=== PATIENT | female | born 1990 | race Caucasian/White ===

== ENCOUNTER 2018-04-01 19:10 | Emergency (ER) | payer OTHER | END 2018-04-01 20:24 | disposition home or self-care (01) | LOC: FTE 19:10 | DX: K64.9 Unspecified hemorrhoids (principal) | CPT/HCPCS: 99283; Z7502 ==

== ENCOUNTER 2018-04-16 00:55 | Emergency (ER) | payer OTHER ==
[2018-04-16] MEDS: PRAMOXINE 1% 15 GM RECT FOAM PR (01:59)
[2018-04-16] MEDS ORDERED: PRAMOXINE/HC 10 GM RECT FOAM PR (02:00)
== END 2018-04-16 02:08 | disposition home or self-care (01) ==
LOC: FTE 00:55
DX: K64.4 Residual hemorrhoidal skin tags (principal)
CPT/HCPCS: 99284; Z7502

== ENCOUNTER 2018-04-17 11:10 | Emergency (ER) | payer OTHER ==
[2018-04-17] MEDS: SOD CHLORIDE 0.9% 1,000 ML IV ×2 (11:37→12:51)
[2018-04-17] MEDS: ONDANSETRON 4 MG INJ IV (11:37)
[2018-04-17] MEDS: morphine 4 MG/ML VIAL IV (11:37)
[2018-04-17 11:53] LABS: ADD MAN DIFF? NO
[2018-04-17 11:56] LABS: WHITE BLOOD COUNT 12.7 10^3/ul (4.8-10.8)
[2018-04-17 11:56] LABS: BASOPHIL # 0.1 10^3/ul (0.0-0.1); BASOPHILS % 0.4 % (0.0-2.0); EOSINOPHILS # 0.5 10^3/ul (0.0-0.5); EOSINOPHILS % 3.8 % (0.0-7.0); HEMATOCRIT 37.3 % (37.0-47.0); HEMOGLOBIN 12.5 g/dl (12.0-16.0); LYMPHOCYTES # 2.8 10^3/ul (0.8-2.9); LYMPHOCYTES % 22.2 % (15.0-51.0); MEAN CORPUSCULAR HGB CONC 33.5 g/dl (32.0-37.0); MEAN CORPUSCULAR VOLUME 86.5 fl (82.0-101.0); MEAN PLATELET VOLUME 8.4 fl (7.4-10.4); MONOCYTE # 0.9 10^3/ul (0.3-0.9); MONOCYTES % 7.2 % (0.0-11.0); NEUTROPHIL # 8.3 10^3/ul (1.6-7.5); NEUTROPHILS % 65.2 % (39.0-77.0); PLATELET COUNT 668 10^3/UL (140-415); RED BLOOD COUNT 4.31 10^6/ul (4.20-5.40); RED CELL DISTRIBUTION WIDTH 13.7 % (11.5-14.5)
[2018-04-17 12:29] LABS: ALBUMIN/GLOBULIN RATIO 0.94; ANION GAP 16 (8-16); BILIRUBIN,TOTAL 0.8 mg/dl (0.2-1.3)
[2018-04-17 12:36] LABS: ALANINE AMINOTRANSFERASE 42 IU/L (13-69); ALBUMIN 3.3 g/dl (3.3-4.9); ALKALINE PHOSPHATASE 75 IU/L (42-121); ASPARTATE AMINO TRANSFERASE 24 IU/L (15-46); BILIRUBIN,INDIRECT 0.8 mg/dl (0-1.1); BLOOD UREA NITROGEN 7 mg/dl (7-20); CALCIUM 8.7 mg/dl (8.4-10.2); CARBON DIOXIDE 24 mmol/L (21-31); CHLORIDE 104 mmol/L (97-110); CREATININE 0.66 mg/dl (0.44-1.00); GLUCOSE 91 mg/dl (70-220); LIPASE 35 U/L (23-300); POTASSIUM 3.5 mmol/L (3.5-5.1); SODIUM 140 mmol/L (135-144); TOTAL PROTEIN 6.8 g/dl (6.1-8.1)
[2018-04-17 12:49] LABS: ADD UMIC YES; UR ASCORBIC ACID NEGATIVE (NEGATIVE); UR BACTERIA FEW /HPF (NONE SEEN); UR BILIRUBIN (Dip) NEGATIVE (NEGATIVE); UR BLOOD (Dip) 1+ mg/dL (NEGATIVE); UR CLARITY SLIGHTLY CLOUDY (CLEAR); UR COLOR YELLOW (YELLOW); UR GLUCOSE (Dip) NEGATIVE (NEGATIVE); UR KETONES (Dip) NEGATIVE (NEGATIVE); UR LEUKOCYTE ESTERASE (Dip) TRACE Leu/ul (NEGATIVE); UR MUCUS FEW /HPF (NONE SEEN); UR NITRITE (Dip) NEGATIVE (NEGATIVE); UR RBC 4 /HPF (0-5); UR SPECIFIC GRAVITY (Dip) 1.006 (1.003-1.030); UR SQUAMOUS EPITHELIAL CELL MODERATE /HPF (FEW); UR TOTAL PROTEIN (Dip) NEGATIVE (NEGATIVE); UR UROBILINOGEN (Dip) NEGATIVE (NEGATIVE); UR WBC 9 /HPF (0-5)
[2018-04-17] MEDS: ACETAMINOPHEN 500 MG TAB PO (14:14)
== END 2018-04-17 14:25 | disposition home or self-care (01) ==
LOC: FTE 11:10
DX: K64.4 Residual hemorrhoidal skin tags (principal); R19.7 Diarrhea, unspecified
CPT/HCPCS: 36415; 80053; 81001; 83690; 84703; 85025; 86850; 86900; 86901; 87086; 96361; 96374; 96375; 99284-25

== ENCOUNTER 2018-04-18 02:53 | Inpatient (IN) | payer OTHER ==
[2018-04-18] MEDS: ONDANSETRON 4 MG INJ IV ×3 (03:20→06:59)
[2018-04-18] MEDS: HYDROmorphONE 1 MG/ML SYG IV ×2 (03:20→06:59)
[2018-04-18] MEDS: SOD CHLORIDE 0.9% 1,000 ML IV ×3 (03:21→16:49)
[2018-04-18 03:35] LABS: ADD MAN DIFF? NO
[2018-04-18 03:39] LABS: WHITE BLOOD COUNT 16.6 10^3/ul (4.8-10.8)
[2018-04-18 03:39] LABS: BASOPHIL # 0.1 10^3/ul (0.0-0.1); BASOPHILS % 0.3 % (0.0-2.0); EOSINOPHILS # 0.6 10^3/ul (0.0-0.5); EOSINOPHILS % 3.4 % (0.0-7.0); HEMATOCRIT 34.8 % (37.0-47.0); HEMOGLOBIN 11.6 g/dl (12.0-16.0); LYMPHOCYTES # 3.6 10^3/ul (0.8-2.9); LYMPHOCYTES % 21.9 % (15.0-51.0); MEAN CORPUSCULAR HEMOGLOBIN 28.9 pg (29.0-33.0); MEAN CORPUSCULAR HGB CONC 33.3 g/dl (32.0-37.0); MEAN CORPUSCULAR VOLUME 86.6 fl (82.0-101.0); MEAN PLATELET VOLUME 8.6 fl (7.4-10.4); MONOCYTE # 1.1 10^3/ul (0.3-0.9); MONOCYTES % 6.3 % (0.0-11.0); NEUTROPHIL # 11.2 10^3/ul (1.6-7.5); NEUTROPHILS % 67.4 % (39.0-77.0); PLATELET COUNT 685 10^3/UL (140-415); RED BLOOD COUNT 4.02 10^6/ul (4.20-5.40); RED CELL DISTRIBUTION WIDTH 13.5 % (11.5-14.5)
[2018-04-18 03:59] LABS: ALANINE AMINOTRANSFERASE 38 IU/L (13-69); ALBUMIN 2.9 g/dl (3.3-4.9); ALBUMIN/GLOBULIN RATIO 0.76; ALKALINE PHOSPHATASE 79 IU/L (42-121); ANION GAP 14 (8-16); ASPARTATE AMINO TRANSFERASE 22 IU/L (15-46); BILIRUBIN,INDIRECT 0.6 mg/dl (0-1.1); BILIRUBIN,TOTAL 0.6 mg/dl (0.2-1.3); BLOOD UREA NITROGEN 4 mg/dl (7-20); CALCIUM 8.5 mg/dl (8.4-10.2); CARBON DIOXIDE 21 mmol/L (21-31); CHLORIDE 106 mmol/L (97-110); GLUCOSE 93 mg/dl (70-220); LIPASE 45 U/L (23-300); POTASSIUM 3.6 mmol/L (3.5-5.1); SODIUM 137 mmol/L (135-144); TOTAL PROTEIN 6.7 g/dl (6.1-8.1)
[2018-04-18] MEDS: HYDROmorphONE 0.5 MG/0.5 ML SYG IV (05:12)
[2018-04-18 05:23] LABS: ADD UMIC YES; UR ASCORBIC ACID NEGATIVE (NEGATIVE); UR BACTERIA FEW /HPF (NONE SEEN); UR BILIRUBIN (Dip) NEGATIVE (NEGATIVE); UR BLOOD (Dip) 1+ mg/dL (NEGATIVE); UR CLARITY CLEAR (CLEAR); UR COLOR YELLOW (YELLOW); UR GLUCOSE (Dip) NEGATIVE (NEGATIVE); UR KETONES (Dip) NEGATIVE (NEGATIVE); UR LEUKOCYTE ESTERASE (Dip) TRACE Leu/ul (NEGATIVE); UR MUCUS FEW /HPF (NONE SEEN); UR NITRITE (Dip) NEGATIVE (NEGATIVE); UR RBC 3 /HPF (0-5); UR SPECIFIC GRAVITY (Dip) 1.006 (1.003-1.030); UR SQUAMOUS EPITHELIAL CELL FEW /HPF (FEW); UR TOTAL PROTEIN (Dip) NEGATIVE (NEGATIVE); UR UROBILINOGEN (Dip) NEGATIVE (NEGATIVE); UR WBC 5 /HPF (0-5)
[2018-04-18] MEDS ORDERED: DIPHENHYDRAMINE 50 MG INJ (06:52)
[2018-04-18] MEDS ORDERED: NACL 0.9% 3 ML SYG IV (09:00)
[2018-04-18] MEDS ORDERED: ONDANSETRON 4 MG INJ IV (09:00)
[2018-04-18] MEDS: morphine 2 MG INJ IV ×3 (10:22→21:16)
[2018-04-18] MEDS: CIPROFLOXACIN 400MG/D5W 200 ML IVPB ×2 (10:30→21:00)
[2018-04-18 11:56] LABS: C-REACTIVE PROTEIN 8.9 mg/dl (0.0-0.9)
[2018-04-18] MEDS: FAMOTIDINE 20 MG INJ IV ×2 (12:07→21:00)
[2018-04-18] MEDS: predniSONE 20 MG TAB PO (12:07)
[2018-04-18] MEDS: metroNIDAZOLE 500 MG/NS (PMX) 100 ML IVPB ×2 (12:18→21:07)
[2018-04-18] MEDS ORDERED: HYOSCYAMINE 0.125 MG SUBL TAB SL (13:30)
[2018-04-18] MEDS: MESALAMINE (EC) 400 MG CAP PO ×2 (14:26→17:43)
[2018-04-18] MEDS: HYDROCORTISONE 25 MG SUPP PR (15:20)
[2018-04-18] MEDS: MESALAMINE 1000 MG SUPP PR (21:16)
[2018-04-19] MEDS: SOD CHLORIDE 0.9% 1,000 ML IV ×4 (00:49→23:01)
[2018-04-19] MEDS: morphine 2 MG INJ IV ×3 (01:44→09:19)
[2018-04-19] MEDS: MESALAMINE (EC) 400 MG CAP PO ×5 (02:00→20:25)
[2018-04-19] MEDS: metroNIDAZOLE 500 MG/NS (PMX) 100 ML IVPB ×2 (02:03→13:38)
[2018-04-19 04:49] LABS: ADD MAN DIFF? NO
[2018-04-19 04:52] LABS: WHITE BLOOD COUNT 12.6 10^3/ul (4.8-10.8)
[2018-04-19 04:52] LABS: BASOPHILS % 0.2 % (0.0-2.0); EOSINOPHILS % 0.2 % (0.0-7.0); HEMATOCRIT 30.6 % (37.0-47.0); HEMOGLOBIN 9.8 g/dl (12.0-16.0); LYMPHOCYTES # 2.3 10^3/ul (0.8-2.9); LYMPHOCYTES % 18.2 % (15.0-51.0); MEAN CORPUSCULAR HEMOGLOBIN 28.6 pg (29.0-33.0); MEAN CORPUSCULAR VOLUME 89.2 fl (82.0-101.0); MEAN PLATELET VOLUME 8.4 fl (7.4-10.4); MONOCYTE # 1.3 10^3/ul (0.3-0.9); MONOCYTES % 10.2 % (0.0-11.0); NEUTROPHIL # 8.9 10^3/ul (1.6-7.5); NEUTROPHILS % 70.6 % (39.0-77.0); PLATELET COUNT 532 10^3/UL (140-415); RED BLOOD COUNT 3.43 10^6/ul (4.20-5.40); RED CELL DISTRIBUTION WIDTH 13.8 % (11.5-14.5)
[2018-04-19 05:16] LABS: ALANINE AMINOTRANSFERASE 25 IU/L (13-69); ALBUMIN 2.2 g/dl (3.3-4.9); ALBUMIN/GLOBULIN RATIO 0.73; ALKALINE PHOSPHATASE 57 IU/L (42-121); ANION GAP 8 (8-16); ASPARTATE AMINO TRANSFERASE 9 IU/L (15-46); BILIRUBIN,INDIRECT 0.1 mg/dl (0-1.1); BILIRUBIN,TOTAL 0.1 mg/dl (0.2-1.3); BLOOD UREA NITROGEN 5 mg/dl (7-20); CALCIUM 7.9 mg/dl (8.4-10.2); CARBON DIOXIDE 27 mmol/L (21-31); CHLORIDE 108 mmol/L (97-110); CREATININE 0.52 mg/dl (0.44-1.00); GLUCOSE 137 mg/dl (70-220); POTASSIUM 3.7 mmol/L (3.5-5.1); SODIUM 139 mmol/L (135-144); TOTAL PROTEIN 5.2 g/dl (6.1-8.1)
[2018-04-19 05:18] LABS: AMYLASE < 30 U/L (11-123); LIPASE < 10 U/L (23-300)
[2018-04-19 05:19] LABS: HEMOGLOBIN A1C 5.6 % (0-5.9); PHOSPHORUS 2.7 mg/dl (2.5-4.9)
[2018-04-19 05:19] LABS: CHOL/HDL RATIO 1.7 RATIO; CHOLESTEROL 69 mg/dl (100-200); HDL CHOLESTEROL 40 mg/dl (33-83); LDL CHOLESTEROL,CALCULATED 22 mg/dl; MAGNESIUM 2.3 mg/dl (1.7-2.5); TRIGLYCERIDES 37 mg/dl (0-149)
[2018-04-19 05:31] LABS: INR 1.07; PT RATIO 1.1
[2018-04-19 05:31] LABS: C-REACTIVE PROTEIN 12.5 mg/dl (0.0-0.9)
[2018-04-19 05:32] LABS: PARTIAL THROMBOPLASTIN TIME 33.4 Sec (25.0-35.0)
[2018-04-19 06:13] LABS: ERYTHROCYTE SEDIMENTATION RATE 15 mm/Hr (0-20)
[2018-04-19] MEDS: FAMOTIDINE 20 MG INJ IV ×2 (09:00→20:23)
[2018-04-19] MEDS: CIPROFLOXACIN 400MG/D5W 200 ML IVPB (09:00)
[2018-04-19] MEDS: predniSONE 20 MG TAB PO (09:22)
[2018-04-19] MEDS: HYDROmorphONE 1 MG/ML SYG IV ×3 (11:59→20:23)
[2018-04-19 14:10] LABS: HEMATOCRIT 32.5 % (37.0-47.0); HEMOGLOBIN 10.6 g/dl (12.0-16.0)
[2018-04-19] MEDS: MESALAMINE 1000 MG SUPP PR (20:25)
[2018-04-20] MEDS: HYDROmorphONE 1 MG/ML SYG IV ×6 (00:38→23:40)
[2018-04-20] MEDS: HYDROCODONE/APAP (5/325) TAB PO (02:50)
[2018-04-20 06:02] LABS: WHITE BLOOD COUNT 14.2 10^3/ul (4.8-10.8)
[2018-04-20 06:02] LABS: ABNORMAL IP MESSAGE 1; HEMATOCRIT 29.3 % (37.0-47.0); HEMOGLOBIN 9.3 g/dl (12.0-16.0); MEAN CORPUSCULAR HEMOGLOBIN 28.7 pg (29.0-33.0); MEAN CORPUSCULAR HGB CONC 31.7 g/dl (32.0-37.0); MEAN CORPUSCULAR VOLUME 90.4 fl (82.0-101.0); MEAN PLATELET VOLUME 8.8 fl (7.4-10.4); PLATELET COUNT 538 10^3/UL (140-415); RED BLOOD COUNT 3.24 10^6/ul (4.20-5.40); RED CELL DISTRIBUTION WIDTH 13.9 % (11.5-14.5)
[2018-04-20 06:04] LABS: POSITIVE DIFF @See below
[2018-04-20 06:05] LABS: ADD MAN DIFF? YES
[2018-04-20 06:42] LABS: MAGNESIUM 2.2 mg/dl (1.7-2.5)
[2018-04-20 06:42] LABS: PHOSPHORUS 2.6 mg/dl (2.5-4.9)
[2018-04-20 06:45] LABS: ALANINE AMINOTRANSFERASE 23 IU/L (13-69); ALBUMIN 2.2 g/dl (3.3-4.9); ALBUMIN/GLOBULIN RATIO 0.78; ALKALINE PHOSPHATASE 50 IU/L (42-121); ANION GAP 8 (8-16); ASPARTATE AMINO TRANSFERASE < 8 IU/L (15-46); BILIRUBIN,INDIRECT 0.2 mg/dl (0-1.1); BILIRUBIN,TOTAL 0.2 mg/dl (0.2-1.3); BLOOD UREA NITROGEN 6 mg/dl (7-20); CALCIUM 7.7 mg/dl (8.4-10.2); CARBON DIOXIDE 25 mmol/L (21-31); CHLORIDE 110 mmol/L (97-110); CREATININE 0.53 mg/dl (0.44-1.00); GLUCOSE 123 mg/dl (70-220); POTASSIUM 3.7 mmol/L (3.5-5.1); SODIUM 139 mmol/L (135-144)
[2018-04-20] MEDS ORDERED: CEFAZOLIN 1 GM INJ (07:00)
[2018-04-20 07:40] LABS: ANISOCYTOSIS 1+ (0-0); BAND NEUTROPHILS #M 2.8 10^3/ul (0.0-0.6); BAND NEUTROPHILS % (M) 20 % (0-4); LYMPHOCYTES #M 3.6 10^3/ul (0.8-2.9); LYMPHOCYTES % (M) 26 % (15-51); MONOCYTE #M 1.1 10^3/ul (0.3-0.9); MONOCYTES % (M) 8 % (0-11); PLATELET ESTIMATE INCREASED; POIKILOCYTOSIS 1+ (0-0); SEG NEUT #M 6.9 10^3/ul (1.6-7.5); SEGMENTED NEUTROPHILS (M) % 46 % (39-77); SMUDGE%M 107 % (0-0)
[2018-04-20] MEDS: MESALAMINE (EC) 400 MG CAP PO ×4 (08:27→22:07)
[2018-04-20] MEDS: SOD CHLORIDE 0.9% 1,000 ML IV ×3 (08:27→22:07)
[2018-04-20] MEDS: FAMOTIDINE 20 MG INJ IV ×2 (08:28→22:06)
[2018-04-20] MEDS: predniSONE 20 MG TAB PO (08:28)
[2018-04-20] MEDS ORDERED: HYDROmorphONE 1 MG/5 ML IV SYRINGE IV ×4 (18:00→19:00)
[2018-04-20] MEDS: HYDROmorphONE 0.5 MG/0.5 ML SYG IV (18:17)
[2018-04-20] MEDS ORDERED: MIDAZOLAM 1 MG/ML 2 ML INJ ×2 (18:57→19:19)
[2018-04-20] MEDS ORDERED: LIDOCAINE 2% (SDV) 5 ML INJ (18:58)
[2018-04-20] MEDS ORDERED: PROPOFOL 20 ML (18:58)
[2018-04-20] MEDS ORDERED: FENTAnyl 50 MCG/ML VIAL (18:59)
[2018-04-20] MEDS ORDERED: FENTAnyl 50 MCG/ML VIAL IV ×3 (19:00)
[2018-04-20] MEDS ORDERED: ONDANSETRON 4 MG INJ IV (19:00)
[2018-04-20] MEDS ORDERED: MEPERIDINE 25 MG INJ IV (19:00)
[2018-04-20] MEDS ORDERED: DIPHENHYDRAMINE 50 MG INJ IV (19:00)
[2018-04-20] MEDS ORDERED: PROCHLORPERAZINE 10 MG INJ IV (19:00)
[2018-04-20] MEDS ORDERED: ONDANSETRON 4 MG INJ (19:03)
[2018-04-20] MEDS ORDERED: DEXAMETHASONE 4 MG/ML 1 ML INJ (19:03)
[2018-04-20] MEDS ORDERED: HYDROmorphONE 2 MG/ML SYG (19:20)
[2018-04-20] MEDS: BUPIVACAINE 0.25%/EPI (SDV) 30 ML INJ (19:35)
[2018-04-20] MEDS: MESALAMINE 1000 MG SUPP PR (21:00)
[2018-04-20] MEDS: MUPIROCIN 2% 22 GM OINT TOP (22:07)
[2018-04-21] MEDS: HYDROCODONE/APAP (5/325) TAB PO ×2 (02:10→11:21)
[2018-04-21] MEDS: HYDROmorphONE 1 MG/ML SYG IV ×5 (03:33→20:12)
[2018-04-21 05:03] LABS: ABNORMAL IP MESSAGE 1; HEMOGLOBIN 9.8 g/dl (12.0-16.0); MEAN CORPUSCULAR HEMOGLOBIN 28.5 pg (29.0-33.0); MEAN CORPUSCULAR HGB CONC 31.6 g/dl (32.0-37.0); MEAN CORPUSCULAR VOLUME 90.1 fl (82.0-101.0); MEAN PLATELET VOLUME 8.6 fl (7.4-10.4); PLATELET COUNT 526 10^3/UL (140-415); RED BLOOD COUNT 3.44 10^6/ul (4.20-5.40); RED CELL DISTRIBUTION WIDTH 14.2 % (11.5-14.5)
[2018-04-21 05:03] LABS: WHITE BLOOD COUNT 14.8 10^3/ul (4.8-10.8)
[2018-04-21 05:19] LABS: ADD MAN DIFF? YES; POSITIVE DIFF @See below
[2018-04-21 05:23] LABS: ANION GAP 11 (8-16); BLOOD UREA NITROGEN 6 mg/dl (7-20); CALCIUM 8.2 mg/dl (8.4-10.2); CARBON DIOXIDE 30 mmol/L (21-31); CHLORIDE 103 mmol/L (97-110); CREATININE 0.53 mg/dl (0.44-1.00); GLUCOSE 104 mg/dl (70-220); POTASSIUM 4.7 mmol/L (3.5-5.1); SODIUM 139 mmol/L (135-144)
[2018-04-21 05:27] LABS: PHOSPHORUS 3.7 mg/dl (2.5-4.9)
[2018-04-21 07:40] LABS: BAND NEUTROPHILS #M 3.4 10^3/ul (0.0-0.6); BAND NEUTROPHILS % (M) 23 % (0-4); LYMPHOCYTES % (M) 14 % (15-51); MONOCYTE #M 1.6 10^3/ul (0.3-0.9); MONOCYTES % (M) 11 % (0-11); PLATELET ESTIMATE NORMAL; SEG NEUT #M 8.2 10^3/ul (1.6-7.5); SEGMENTED NEUTROPHILS (M) % 52 % (39-77); SMUDGE%M 76 % (0-0)
[2018-04-21] MEDS: SOD CHLORIDE 0.9% 1,000 ML IV ×2 (08:49→12:11)
[2018-04-21] MEDS: MESALAMINE (EC) 400 MG CAP PO ×4 (09:16→20:17)
[2018-04-21] MEDS: MUPIROCIN 2% 22 GM OINT TOP ×2 (09:16→20:18)
[2018-04-21] MEDS: predniSONE 20 MG TAB PO (09:16)
[2018-04-21] MEDS: FAMOTIDINE 20 MG INJ IV ×2 (09:17→20:14)
[2018-04-21] MEDS ORDERED: LOPERAMIDE HCL 1 MG/5 ML LIQUID (10 ML UD CUP) PO (16:00)
[2018-04-21] MEDS: PSYLLIUM 28% PACKET PO (17:17)
[2018-04-21] MEDS: LOPERAMIDE 2 MG CAP PO (17:17)
[2018-04-21] MEDS: MESALAMINE 1000 MG SUPP PR (19:57)
[2018-04-22] MEDS: HYDROmorphONE 1 MG/ML SYG IV ×7 (00:11→20:32)
[2018-04-22] MEDS: SOD CHLORIDE 0.9% 1,000 ML IV ×3 (00:49→16:27)
[2018-04-22] MEDS: HYDROCODONE/APAP (5/325) TAB PO ×2 (01:51→20:00)
[2018-04-22 05:36] LABS: WHITE BLOOD COUNT 11.4 10^3/ul (4.8-10.8)
[2018-04-22 05:36] LABS: ABNORMAL IP MESSAGE 1; HEMOGLOBIN 9.4 g/dl (12.0-16.0); MEAN CORPUSCULAR HEMOGLOBIN 28.7 pg (29.0-33.0); MEAN CORPUSCULAR HGB CONC 32.4 g/dl (32.0-37.0); MEAN CORPUSCULAR VOLUME 88.7 fl (82.0-101.0); MEAN PLATELET VOLUME 8.4 fl (7.4-10.4); PLATELET COUNT 529 10^3/UL (140-415); RED BLOOD COUNT 3.27 10^6/ul (4.20-5.40); RED CELL DISTRIBUTION WIDTH 13.9 % (11.5-14.5)
[2018-04-22 05:42] LABS: ADD MAN DIFF? YES; POSITIVE DIFF @See below
[2018-04-22 06:10] LABS: PHOSPHORUS 3.3 mg/dl (2.5-4.9)
[2018-04-22 06:10] LABS: MAGNESIUM 2.1 mg/dl (1.7-2.5)
[2018-04-22 06:12] LABS: ALANINE AMINOTRANSFERASE 24 IU/L (13-69); ALBUMIN 2.3 g/dl (3.3-4.9); ALBUMIN/GLOBULIN RATIO 0.71; ALKALINE PHOSPHATASE 58 IU/L (42-121); ANION GAP 7 (8-16); ASPARTATE AMINO TRANSFERASE 15 IU/L (15-46); BILIRUBIN,INDIRECT 0.2 mg/dl (0-1.1); BILIRUBIN,TOTAL 0.2 mg/dl (0.2-1.3); BLOOD UREA NITROGEN 8 mg/dl (7-20); CALCIUM 8.4 mg/dl (8.4-10.2); CARBON DIOXIDE 32 mmol/L (21-31); CHLORIDE 105 mmol/L (97-110); CREATININE 0.48 mg/dl (0.44-1.00); GLUCOSE 86 mg/dl (70-220); POTASSIUM 3.6 mmol/L (3.5-5.1); SODIUM 140 mmol/L (135-144); TOTAL PROTEIN 5.5 g/dl (6.1-8.1)
[2018-04-22] MEDS: PSYLLIUM 28% PACKET PO ×3 (07:50→16:28)
[2018-04-22] MEDS: MESALAMINE (EC) 400 MG CAP PO ×4 (08:18→20:00)
[2018-04-22] MEDS: FAMOTIDINE 20 MG INJ IV ×2 (08:18→21:00)
[2018-04-22] MEDS: predniSONE 20 MG TAB PO (08:18)
[2018-04-22] MEDS: MUPIROCIN 2% 22 GM OINT TOP ×2 (08:21→20:01)
[2018-04-22 09:11] LABS: BAND NEUTROPHILS #M 3.1 10^3/ul (0.0-0.6); BAND NEUTROPHILS % (M) 28 % (0-4); EOSINOPHILS % (M) 1 % (0-7); LYMPHOCYTES #M 3.4 10^3/ul (0.8-2.9); LYMPHOCYTES % (M) 30 % (15-51); MONOCYTE #M 1.1 10^3/ul (0.3-0.9); MONOCYTES % (M) 10 % (0-11); PLATELET ESTIMATE NORMAL; POLYCHROMASIA 1+ (0-0); SEG NEUT #M 3.9 10^3/ul (1.6-7.5); SEGMENTED NEUTROPHILS (M) % 31 % (39-77); SMUDGE%M 22 % (0-0)
[2018-04-22] MEDS: LIDOCAINE 5% 35 GM OINT TOP ×2 (12:41→23:37)
[2018-04-22] MEDS: MESALAMINE 1000 MG SUPP PR (21:00)
[2018-04-22] MEDS: LOPERAMIDE 2 MG CAP PO (23:36)
[2018-04-23] MEDS: HYDROmorphONE 1 MG/ML SYG IV ×8 (00:06→23:21)
[2018-04-23] MEDS: DICYCLOMINE 10 MG CAP PO ×2 (00:21→06:50)
[2018-04-23] MEDS: SOD CHLORIDE 0.9% 1,000 ML IV (00:49)
[2018-04-23] MEDS: LORAZEPAM 2 MG INJ IV (01:53)
[2018-04-23 05:19] LABS: WHITE BLOOD COUNT 12.5 10^3/ul (4.8-10.8)
[2018-04-23 05:19] LABS: ABNORMAL IP MESSAGE 1; HEMATOCRIT 28.5 % (37.0-47.0); HEMOGLOBIN 9.1 g/dl (12.0-16.0); MEAN CORPUSCULAR HEMOGLOBIN 28.3 pg (29.0-33.0); MEAN CORPUSCULAR HGB CONC 31.9 g/dl (32.0-37.0); MEAN CORPUSCULAR VOLUME 88.8 fl (82.0-101.0); MEAN PLATELET VOLUME 8.5 fl (7.4-10.4); PLATELET COUNT 533 10^3/UL (140-415); RED BLOOD COUNT 3.21 10^6/ul (4.20-5.40); RED CELL DISTRIBUTION WIDTH 13.8 % (11.5-14.5)
[2018-04-23 05:35] LABS: POSITIVE DIFF @See below
[2018-04-23 05:36] LABS: ADD MAN DIFF? YES
[2018-04-23 05:43] LABS: ANION GAP 8 (8-16); BLOOD UREA NITROGEN 9 mg/dl (7-20); CALCIUM 8.2 mg/dl (8.4-10.2); CARBON DIOXIDE 30 mmol/L (21-31); CHLORIDE 103 mmol/L (97-110); GLUCOSE 80 mg/dl (70-220); POTASSIUM 3.3 mmol/L (3.5-5.1); SODIUM 138 mmol/L (135-144)
[2018-04-23 05:46] LABS: PHOSPHORUS 3.4 mg/dl (2.5-4.9)
[2018-04-23] MEDS: HYDROCODONE/APAP (5/325) TAB PO ×3 (06:50→22:16)
[2018-04-23] MEDS: PSYLLIUM 28% PACKET PO ×3 (07:50→17:55)
[2018-04-23 08:07] LABS: BAND NEUTROPHILS #M 0.2 10^3/ul (0.0-0.6); BAND NEUTROPHILS % (M) 2 % (0-4); LYMPHOCYTES #M 3.6 10^3/ul (0.8-2.9); LYMPHOCYTES % (M) 29 % (15-51); MONOCYTE #M 1.1 10^3/ul (0.3-0.9); MONOCYTES % (M) 9 % (0-11); PLATELET ESTIMATE INCREASED; POLYCHROMASIA 2+ (0-0); SEG NEUT #M 7.5 10^3/ul (1.6-7.5); SEGMENTED NEUTROPHILS (M) % 60 % (39-77); SMUDGE%M 21 % (0-0)
[2018-04-23] MEDS: FAMOTIDINE 20 MG INJ IV ×2 (09:21→20:22)
[2018-04-23] MEDS: POTASSIUM CHLORIDE (SR) 20 MEQ TAB PO (09:21)
[2018-04-23] MEDS: LOPERAMIDE 2 MG CAP PO (09:21)
[2018-04-23] MEDS: MESALAMINE (EC) 400 MG CAP PO ×4 (09:21→20:22)
[2018-04-23] MEDS: MUPIROCIN 2% 22 GM OINT TOP ×2 (09:22→21:15)
[2018-04-23] MEDS: ALBUTEROL 0.083% (NEB) 2.5 MG/3 ML AMP HHN (10:25)
[2018-04-23] MEDS: IPRATROPIUM (NEB) 0.5 MG/2.5 ML AMP HHN (10:25)
[2018-04-23] MEDS: predniSONE 20 MG TAB PO (10:29)
[2018-04-23] MEDS: MESALAMINE 1000 MG SUPP PR ×2 (20:22→21:00)
[2018-04-24] MEDS: HYDROmorphONE 1 MG/ML SYG IV ×8 (02:11→23:55)
[2018-04-24 05:29] LABS: WHITE BLOOD COUNT 10.6 10^3/ul (4.8-10.8)
[2018-04-24 05:29] LABS: HEMATOCRIT 29.4 % (37.0-47.0); HEMOGLOBIN 9.5 g/dl (12.0-16.0); MEAN CORPUSCULAR HEMOGLOBIN 29.1 pg (29.0-33.0); MEAN CORPUSCULAR HGB CONC 32.3 g/dl (32.0-37.0); MEAN CORPUSCULAR VOLUME 90.2 fl (82.0-101.0); MEAN PLATELET VOLUME 8.5 fl (7.4-10.4); PLATELET COUNT 542 10^3/UL (140-415); RED BLOOD COUNT 3.26 10^6/ul (4.20-5.40); RED CELL DISTRIBUTION WIDTH 13.9 % (11.5-14.5)
[2018-04-24 05:42] LABS: POSITIVE DIFF @See below
[2018-04-24 05:43] LABS: ADD MAN DIFF? YES
[2018-04-24 06:00] LABS: MAGNESIUM 2.1 mg/dl (1.7-2.5)
[2018-04-24 06:00] LABS: PHOSPHORUS 4.2 mg/dl (2.5-4.9)
[2018-04-24 06:25] LABS: ANION GAP 10 (8-16); BLOOD UREA NITROGEN 9 mg/dl (7-20); CALCIUM 8.6 mg/dl (8.4-10.2); CARBON DIOXIDE 32 mmol/L (21-31); CHLORIDE 100 mmol/L (97-110); CREATININE 0.49 mg/dl (0.44-1.00); GLUCOSE 137 mg/dl (70-220); POTASSIUM 3.7 mmol/L (3.5-5.1); SODIUM 138 mmol/L (135-144)
[2018-04-24] MEDS: HYDROCODONE/APAP (5/325) TAB PO ×2 (07:29→22:24)
[2018-04-24] MEDS: predniSONE 20 MG TAB PO (08:12)
[2018-04-24] MEDS: MESALAMINE (EC) 400 MG CAP PO ×4 (08:12→20:45)
[2018-04-24] MEDS: PSYLLIUM 28% PACKET PO ×3 (08:12→18:18)
[2018-04-24] MEDS: FAMOTIDINE 20 MG INJ IV ×2 (08:13→20:46)
[2018-04-24] MEDS: MUPIROCIN 2% 22 GM OINT TOP ×2 (08:13→20:46)
[2018-04-24 10:00] LABS: BAND NEUTROPHILS #M 0.6 10^3/ul (0.0-0.6); BAND NEUTROPHILS % (M) 6 % (0-4); LYMPHOCYTES #M 2.2 10^3/ul (0.8-2.9); LYMPHOCYTES % (M) 21 % (15-51); MONOCYTE #M 0.9 10^3/ul (0.3-0.9); MONOCYTES % (M) 9 % (0-11); PLATELET ESTIMATE INCREASED; POIKILOCYTOSIS 1+ (0-0); POLYCHROMASIA 1+ (0-0); SEG NEUT #M 6.8 10^3/ul (1.6-7.5); SEGMENTED NEUTROPHILS (M) % 64 % (39-77); SMUDGE%M 21 % (0-0)
[2018-04-24] MEDS: LIDOCAINE 5% 35 GM OINT TOP (10:29)
[2018-04-24] MEDS: LOPERAMIDE 2 MG CAP PO (10:37)
[2018-04-24] MEDS: DICYCLOMINE 10 MG CAP PO (10:37)
[2018-04-24] MEDS: MESALAMINE 1000 MG SUPP PR (21:00)
[2018-04-25] MEDS: HYDROmorphONE 0.5 MG/0.5 ML SYG IV ×3 (01:26→14:53)
[2018-04-25] MEDS: HYDROmorphONE 1 MG/ML SYG IV ×5 (02:37→22:27)
[2018-04-25 05:18] LABS: HEMATOCRIT 29.5 % (37.0-47.0); HEMOGLOBIN 9.5 g/dl (12.0-16.0); MEAN CORPUSCULAR HEMOGLOBIN 28.3 pg (29.0-33.0); MEAN CORPUSCULAR HGB CONC 32.2 g/dl (32.0-37.0); MEAN CORPUSCULAR VOLUME 87.8 fl (82.0-101.0); MEAN PLATELET VOLUME 8.4 fl (7.4-10.4); PLATELET COUNT 539 10^3/UL (140-415); RED BLOOD COUNT 3.36 10^6/ul (4.20-5.40); RED CELL DISTRIBUTION WIDTH 13.9 % (11.5-14.5)
[2018-04-25 05:18] LABS: WHITE BLOOD COUNT 11.9 10^3/ul (4.8-10.8)
[2018-04-25 05:36] LABS: ADD MAN DIFF? YES; POSITIVE DIFF @See below
[2018-04-25 05:40] LABS: ANION GAP 10 (8-16); BLOOD UREA NITROGEN 9 mg/dl (7-20); CALCIUM 8.6 mg/dl (8.4-10.2); CARBON DIOXIDE 28 mmol/L (21-31); CHLORIDE 104 mmol/L (97-110); CREATININE 0.59 mg/dl (0.44-1.00); GLUCOSE 120 mg/dl (70-220); POTASSIUM 3.6 mmol/L (3.5-5.1); SODIUM 138 mmol/L (135-144)
[2018-04-25 05:41] LABS: PHOSPHORUS 4.8 mg/dl (2.5-4.9)
[2018-04-25 05:41] LABS: MAGNESIUM 1.9 mg/dl (1.7-2.5)
[2018-04-25] MEDS: PSYLLIUM 28% PACKET PO ×2 (07:50→11:40)
[2018-04-25] MEDS: MESALAMINE (EC) 400 MG CAP PO ×5 (08:35→22:28)
[2018-04-25] MEDS: predniSONE 20 MG TAB PO (08:36)
[2018-04-25] MEDS: HYDROCODONE/APAP (5/325) TAB PO (08:37)
[2018-04-25] MEDS: FAMOTIDINE 20 MG INJ IV ×3 (08:37→22:29)
[2018-04-25] MEDS: MUPIROCIN 2% 22 GM OINT TOP ×3 (08:39→22:29)
[2018-04-25 08:58] LABS: BAND NEUTROPHILS #M 2.1 10^3/ul (0.0-0.6); BAND NEUTROPHILS % (M) 18 % (0-4); EOSINOPHILS % (M) 3 % (0-7); GIANT THROMBO% (M) 1 % (0-0); LYMPHOCYTES #M 7.2 10^3/ul (0.8-2.9); LYMPHOCYTES % (M) 61 % (15-51); MONOCYTE #M 1.1 10^3/ul (0.3-0.9); MONOCYTES % (M) 10 % (0-11); PLATELET ESTIMATE NORMAL; POIKILOCYTOSIS 1+ (0-0); POLYCHROMASIA 2+ (0-0); SEG NEUT #M 1.2 10^3/ul (1.6-7.5); SEGMENTED NEUTROPHILS (M) % 8 % (39-77); SMUDGE%M 18 % (0-0)
[2018-04-25] MEDS: METHYLPREDNISOLONE 40 MG INJ IV (12:02)
[2018-04-25] MEDS: HYOSCYAMINE 0.125 MG SUBL TAB SL ×4 (14:50→22:28)
[2018-04-25] MEDS: ACETAMINOPHEN 325 MG TAB PO (16:49)
[2018-04-26] MEDS: HYDROmorphONE 1 MG/ML SYG IV ×7 (01:33→22:48)
[2018-04-26] MEDS: HYDROmorphONE 0.5 MG/0.5 ML SYG IV ×2 (03:32→21:15)
[2018-04-26] MEDS: HYOSCYAMINE 0.125 MG SUBL TAB SL ×5 (05:37→20:56)
[2018-04-26 05:47] LABS: HEMATOCRIT 33.3 % (37.0-47.0); HEMOGLOBIN 10.5 g/dl (12.0-16.0); MEAN CORPUSCULAR HEMOGLOBIN 27.6 pg (29.0-33.0); MEAN CORPUSCULAR HGB CONC 31.5 g/dl (32.0-37.0); MEAN CORPUSCULAR VOLUME 87.6 fl (82.0-101.0); MEAN PLATELET VOLUME 8.6 fl (7.4-10.4); PLATELET COUNT 604 10^3/UL (140-415); RED CELL DISTRIBUTION WIDTH 13.9 % (11.5-14.5)
[2018-04-26 05:53] LABS: ADD MAN DIFF? YES; POSITIVE DIFF @See below
[2018-04-26 06:23] LABS: ALANINE AMINOTRANSFERASE 91 IU/L (13-69); ALBUMIN 2.9 g/dl (3.3-4.9); ALBUMIN/GLOBULIN RATIO 0.72; ALKALINE PHOSPHATASE 94 IU/L (42-121); ANION GAP 15 (8-16); ASPARTATE AMINO TRANSFERASE 41 IU/L (15-46); BILIRUBIN,INDIRECT 0.3 mg/dl (0-1.1); BILIRUBIN,TOTAL 0.3 mg/dl (0.2-1.3); BLOOD UREA NITROGEN 10 mg/dl (7-20); CARBON DIOXIDE 25 mmol/L (21-31); CHLORIDE 101 mmol/L (97-110); CREATININE 0.58 mg/dl (0.44-1.00); GLUCOSE 99 mg/dl (70-220); POTASSIUM 4.1 mmol/L (3.5-5.1); SODIUM 137 mmol/L (135-144); TOTAL PROTEIN 6.9 g/dl (6.1-8.1)
[2018-04-26 08:17] LABS: ANISOCYTOSIS 1+ (0-0); BAND NEUTROPHILS #M 1.1 10^3/ul (0.0-0.6); BAND NEUTROPHILS % (M) 10 % (0-4); HYPOCHROMASIA 2+ (0-0); LYMPHOCYTES #M 4.7 10^3/ul (0.8-2.9); LYMPHOCYTES % (M) 43 % (15-51); METAMYELOCYTES #M 0.3 10^3/ul (0.0-0.0); METAMYELOCYTES %M 3 % (0-0); MONOCYTE #M 0.4 10^3/ul (0.3-0.9); MONOCYTES % (M) 4 % (0-11); MYELOCYTES #M 0.1 10^3/ul (0.0-0.0); MYELOCYTES % (M) 1 % (0-0); PLATELET ESTIMATE INCREASED; POLYCHROMASIA 1+ (0-0); REACTIVE LYMPHOCYTES #M 0.2 10^3/ul (0.0-0.0); REACTIVE LYMPHOCYTES% (M) 2 % (0-0); SEG NEUT #M 4.2 10^3/ul (1.6-7.5); SEGMENTED NEUTROPHILS (M) % 37 % (39-77); SMUDGE%M 5 % (0-0)
[2018-04-26] MEDS: MUPIROCIN 2% 22 GM OINT TOP ×2 (08:27→21:13)
[2018-04-26] MEDS: METHYLPREDNISOLONE 40 MG INJ IV (08:28)
[2018-04-26] MEDS: FAMOTIDINE 20 MG INJ IV ×2 (08:35→20:56)
[2018-04-26 08:56] LABS: ERYTHROCYTE SEDIMENTATION RATE 35 mm/Hr (0-20)
[2018-04-26 09:22] LABS: C-REACTIVE PROTEIN 14.7 mg/dl (0.0-0.9)
[2018-04-26] MEDS: LIDOCAINE 5% 35 GM OINT TOP (11:45)
[2018-04-26] MEDS: MESALAMINE (EC) 400 MG CAP PO ×3 (13:06→20:56)
[2018-04-27] MEDS: HYOSCYAMINE 0.125 MG SUBL TAB SL ×5 (01:06→14:07)
[2018-04-27] MEDS: HYDROmorphONE 1 MG/ML SYG IV ×8 (01:56→23:20)
[2018-04-27] MEDS: FAMOTIDINE 20 MG INJ IV ×2 (07:52→20:04)
[2018-04-27] MEDS: METHYLPREDNISOLONE 40 MG INJ IV (07:52)
[2018-04-27] MEDS: MESALAMINE (EC) 400 MG CAP PO ×4 (07:53→23:20)
[2018-04-27] MEDS: MUPIROCIN 2% 22 GM OINT TOP ×2 (07:54→20:10)
[2018-04-27 13:47] LABS: ANCA SCREEN NEGATIVE (NEGATIVE)
[2018-04-27] MEDS ORDERED: HYOSCYAMINE 0.125 MG SUBL TAB SL (15:00)
[2018-04-27 16:47] LABS: MYELOPEROXIDASE ANTIBODY <1.0 AI; PROTEINASE-3 ANTIBODY <1.0 AI
[2018-04-28] MEDS: HYDROmorphONE 0.5 MG/0.5 ML SYG IV ×2 (01:57→20:53)
[2018-04-28] MEDS: HYDROmorphONE 1 MG/ML SYG IV ×7 (03:43→21:42)
[2018-04-28] MEDS: MUPIROCIN 2% 22 GM OINT TOP ×2 (08:43→20:58)
[2018-04-28] MEDS: FAMOTIDINE 20 MG INJ IV ×2 (08:44→20:54)
[2018-04-28] MEDS: MESALAMINE (EC) 400 MG CAP PO ×2 (08:44→12:39)
[2018-04-28] MEDS: predniSONE 10 MG TAB PO (08:48)
[2018-04-28 15:07] LABS: ADD MAN DIFF? NO
[2018-04-28 15:11] LABS: BASOPHILS % 0.2 % (0.0-2.0); EOSINOPHILS % 0.1 % (0.0-7.0); HEMATOCRIT 31.1 % (37.0-47.0); HEMOGLOBIN 9.9 g/dl (12.0-16.0); LYMPHOCYTES # 1.3 10^3/ul (0.8-2.9); LYMPHOCYTES % 9.2 % (15.0-51.0); MEAN CORPUSCULAR HEMOGLOBIN 28.4 pg (29.0-33.0); MEAN CORPUSCULAR HGB CONC 31.8 g/dl (32.0-37.0); MEAN CORPUSCULAR VOLUME 89.1 fl (82.0-101.0); MONOCYTE # 0.5 10^3/ul (0.3-0.9); MONOCYTES % 3.3 % (0.0-11.0); NEUTROPHIL # 11.7 10^3/ul (1.6-7.5); NEUTROPHILS % 84.9 % (39.0-77.0); PLATELET COUNT 451 10^3/UL (140-415); RED BLOOD COUNT 3.49 10^6/ul (4.20-5.40); RED CELL DISTRIBUTION WIDTH 14.1 % (11.5-14.5)
[2018-04-28 15:11] LABS: WHITE BLOOD COUNT 13.8 10^3/ul (4.8-10.8)
[2018-04-28 15:31] LABS: ALANINE AMINOTRANSFERASE 162 IU/L (13-69); ALKALINE PHOSPHATASE 71 IU/L (42-121); ANION GAP 12 (8-16); ASPARTATE AMINO TRANSFERASE 89 IU/L (15-46); BILIRUBIN,INDIRECT 0.2 mg/dl (0-1.1); BILIRUBIN,TOTAL 0.2 mg/dl (0.2-1.3); BLOOD UREA NITROGEN 11 mg/dl (7-20); CALCIUM 8.6 mg/dl (8.4-10.2); CARBON DIOXIDE 26 mmol/L (21-31); CHLORIDE 102 mmol/L (97-110); CREATININE 0.64 mg/dl (0.44-1.00); GLUCOSE 153 mg/dl (70-220); POTASSIUM 4.2 mmol/L (3.5-5.1); SODIUM 136 mmol/L (135-144); TOTAL PROTEIN 6.3 g/dl (6.1-8.1)
[2018-04-29] MEDS: HYDROmorphONE 1 MG/ML SYG IV ×8 (00:39→22:50)
[2018-04-29] MEDS: HYDROmorphONE 0.5 MG/0.5 ML SYG IV ×2 (03:01→08:48)
[2018-04-29 05:09] LABS: ADD MAN DIFF? NO
[2018-04-29 05:12] LABS: BASOPHIL # 0.1 10^3/ul (0.0-0.1); BASOPHILS % 0.4 % (0.0-2.0); EOSINOPHILS # 0.4 10^3/ul (0.0-0.5); EOSINOPHILS % 2.7 % (0.0-7.0); HEMATOCRIT 30.7 % (37.0-47.0); HEMOGLOBIN 9.7 g/dl (12.0-16.0); LYMPHOCYTES # 3.9 10^3/ul (0.8-2.9); LYMPHOCYTES % 27.5 % (15.0-51.0); MEAN CORPUSCULAR HEMOGLOBIN 28.4 pg (29.0-33.0); MEAN CORPUSCULAR HGB CONC 31.6 g/dl (32.0-37.0); MEAN CORPUSCULAR VOLUME 89.8 fl (82.0-101.0); MEAN PLATELET VOLUME 8.1 fl (7.4-10.4); MONOCYTE # 1.4 10^3/ul (0.3-0.9); MONOCYTES % 10.1 % (0.0-11.0); NEUTROPHIL # 7.8 10^3/ul (1.6-7.5); NEUTROPHILS % 55.5 % (39.0-77.0); NUCLEATED RED BLOOD CELLS% 0.1 /100WBC (0.0-0.0); PLATELET COUNT 446 10^3/UL (140-415); RED BLOOD COUNT 3.42 10^6/ul (4.20-5.40); RED CELL DISTRIBUTION WIDTH 14.2 % (11.5-14.5)
[2018-04-29] MEDS: HYDROCODONE/APAP (5/325) TAB PO ×2 (05:26→23:50)
[2018-04-29 05:42] LABS: ALANINE AMINOTRANSFERASE 178 IU/L (13-69); ALBUMIN 2.7 g/dl (3.3-4.9); ALBUMIN/GLOBULIN RATIO 0.84; ALKALINE PHOSPHATASE 79 IU/L (42-121); ANION GAP 10 (8-16); ASPARTATE AMINO TRANSFERASE 89 IU/L (15-46); BILIRUBIN,INDIRECT 0.2 mg/dl (0-1.1); BILIRUBIN,TOTAL 0.2 mg/dl (0.2-1.3); BLOOD UREA NITROGEN 13 mg/dl (7-20); CALCIUM 8.2 mg/dl (8.4-10.2); CARBON DIOXIDE 28 mmol/L (21-31); CHLORIDE 105 mmol/L (97-110); CREATININE 0.56 mg/dl (0.44-1.00); GLUCOSE 98 mg/dl (70-220); POTASSIUM 3.8 mmol/L (3.5-5.1); SODIUM 139 mmol/L (135-144); TOTAL PROTEIN 5.9 g/dl (6.1-8.1)
[2018-04-29] MEDS: predniSONE 10 MG TAB PO (08:50)
[2018-04-29] MEDS: FAMOTIDINE 20 MG INJ IV ×2 (08:50→20:17)
[2018-04-29] MEDS: MUPIROCIN 2% 22 GM OINT TOP ×2 (08:51→20:18)
[2018-04-29] MEDS: ALPRAZOLAM 0.25 MG TAB PO (18:41)
[2018-04-29] MEDS: POTASSIUM CHLORIDE 10 MEQ in SOD CHLORIDE 0.45% 1,000 ML IV (19:41)
[2018-04-29] MEDS: LOPERAMIDE 2 MG CAP PO (22:56)
[2018-04-30] MEDS: HYDROmorphONE 1 MG/ML SYG IV ×8 (01:49→22:56)
[2018-04-30] MEDS: POTASSIUM CHLORIDE 10 MEQ in SOD CHLORIDE 0.45% 1,000 ML IV ×2 (07:20→20:40)
[2018-04-30] MEDS: MUPIROCIN 2% 22 GM OINT TOP ×2 (08:49→22:00)
[2018-04-30] MEDS: predniSONE 10 MG TAB PO (08:49)
[2018-04-30] MEDS: FAMOTIDINE 20 MG INJ IV ×2 (08:49→21:59)
[2018-04-30] MEDS: LOPERAMIDE 2 MG CAP PO (10:48)
[2018-04-30] MEDS: LIDOCAINE 5% 35 GM OINT TOP (10:49)
[2018-04-30] MEDS ORDERED: LOPERAMIDE 2 MG CAP PO (12:30)
[2018-05-01] MEDS: HYDROmorphONE 1 MG/ML SYG IV ×8 (03:40→22:05)
[2018-05-01] MEDS: HYDROmorphONE 0.5 MG/0.5 ML SYG IV (03:41)
[2018-05-01 05:27] LABS: ALANINE AMINOTRANSFERASE 125 IU/L (13-69); ALBUMIN 2.8 g/dl (3.3-4.9); ALKALINE PHOSPHATASE 66 IU/L (42-121); ANION GAP 10 (8-16); ASPARTATE AMINO TRANSFERASE 34 IU/L (15-46); BILIRUBIN,INDIRECT 0.2 mg/dl (0-1.1); BILIRUBIN,TOTAL 0.2 mg/dl (0.2-1.3); BLOOD UREA NITROGEN 14 mg/dl (7-20); CALCIUM 8.4 mg/dl (8.4-10.2); CARBON DIOXIDE 28 mmol/L (21-31); CHLORIDE 104 mmol/L (97-110); CREATININE 0.49 mg/dl (0.44-1.00); GLUCOSE 84 mg/dl (70-220); SODIUM 138 mmol/L (135-144); TOTAL PROTEIN 5.9 g/dl (6.1-8.1)
[2018-05-01] MEDS: predniSONE 10 MG TAB PO (09:25)
[2018-05-01] MEDS: FAMOTIDINE 20 MG INJ IV ×2 (09:26→20:39)
[2018-05-01] MEDS: MUPIROCIN 2% 22 GM OINT TOP ×2 (09:26→20:38)
[2018-05-01] MEDS: POTASSIUM CHLORIDE 10 MEQ in SOD CHLORIDE 0.45% 1,000 ML IV ×2 (10:00→23:20)
[2018-05-01] MEDS: BISACODYL (EC) 5 MG TAB PO (11:42)
[2018-05-01] MEDS: MAGNESIUM CITRATE 300 ML BTL PO (18:21)
[2018-05-01] MEDS: LIDOCAINE 5% 35 GM OINT TOP ×2 (18:23→20:38)
[2018-05-01] MEDS: POLYETHYLENE GLYCOL 3350 119 GM POWDER PO (18:32)
[2018-05-02] MEDS: HYDROmorphONE 1 MG/ML SYG IV ×8 (01:03→22:38)
[2018-05-02 05:11] LABS: ADD MAN DIFF? NO
[2018-05-02 05:18] LABS: BASOPHIL # 0.1 10^3/ul (0.0-0.1); BASOPHILS % 0.4 % (0.0-2.0); EOSINOPHILS # 0.2 10^3/ul (0.0-0.5); EOSINOPHILS % 1.6 % (0.0-7.0); HEMATOCRIT 30.5 % (37.0-47.0); HEMOGLOBIN 9.6 g/dl (12.0-16.0); LYMPHOCYTES # 4.5 10^3/ul (0.8-2.9); LYMPHOCYTES % 34.9 % (15.0-51.0); MEAN CORPUSCULAR HEMOGLOBIN 27.9 pg (29.0-33.0); MEAN CORPUSCULAR HGB CONC 31.5 g/dl (32.0-37.0); MEAN CORPUSCULAR VOLUME 88.7 fl (82.0-101.0); MEAN PLATELET VOLUME 8.1 fl (7.4-10.4); MONOCYTE # 1.2 10^3/ul (0.3-0.9); NEUTROPHIL # 6.8 10^3/ul (1.6-7.5); NEUTROPHILS % 52.4 % (39.0-77.0); PLATELET COUNT 475 10^3/UL (140-415); RED BLOOD COUNT 3.44 10^6/ul (4.20-5.40); RED CELL DISTRIBUTION WIDTH 14.7 % (11.5-14.5)
[2018-05-02 05:18] LABS: WHITE BLOOD COUNT 12.9 10^3/ul (4.8-10.8)
[2018-05-02 05:34] LABS: ALANINE AMINOTRANSFERASE 98 IU/L (13-69); ALBUMIN 2.9 g/dl (3.3-4.9); ALKALINE PHOSPHATASE 71 IU/L (42-121); ANION GAP 11 (8-16); ASPARTATE AMINO TRANSFERASE 27 IU/L (15-46); BILIRUBIN,INDIRECT 0.4 mg/dl (0-1.1); BILIRUBIN,TOTAL 0.4 mg/dl (0.2-1.3); BLOOD UREA NITROGEN 11 mg/dl (7-20); CALCIUM 8.5 mg/dl (8.4-10.2); CARBON DIOXIDE 30 mmol/L (21-31); CHLORIDE 102 mmol/L (97-110); GLUCOSE 81 mg/dl (70-220); POTASSIUM 3.7 mmol/L (3.5-5.1); SODIUM 139 mmol/L (135-144); TOTAL PROTEIN 6.1 g/dl (6.1-8.1)
[2018-05-02] MEDS: POLYETHYLENE GLYCOL 3350 119 GM POWDER PO (06:31)
[2018-05-02] MEDS ORDERED: LIDOCAINE 2% (SDV) 5 ML INJ (07:00)
[2018-05-02] MEDS ORDERED: PROPOFOL 200 MG INJ (07:00)
[2018-05-02] MEDS: FAMOTIDINE 20 MG INJ IV ×2 (08:25→19:43)
[2018-05-02] MEDS: BISACODYL (EC) 5 MG TAB PO (08:26)
[2018-05-02] MEDS: MUPIROCIN 2% 22 GM OINT TOP ×2 (08:26→19:49)
[2018-05-02] MEDS: PROPOFOL 60 ML (14:54)
[2018-05-02] MEDS: predniSONE 10 MG TAB PO (17:09)
[2018-05-02] MEDS: HYDROmorphONE 0.5 MG/0.5 ML SYG IV (17:29)
[2018-05-02] MEDS: LIDOCAINE 5% 35 GM OINT TOP ×2 (17:30→19:49)
[2018-05-03] MEDS: HYDROmorphONE 1 MG/ML SYG IV ×7 (01:40→23:57)
[2018-05-03 05:17] LABS: ADD MAN DIFF? NO
[2018-05-03 05:31] LABS: WHITE BLOOD COUNT 7.6 10^3/ul (4.8-10.8)
[2018-05-03 05:31] LABS: BASOPHILS % 0.3 % (0.0-2.0); EOSINOPHILS % 0.1 % (0.0-7.0); HEMATOCRIT 31.9 % (37.0-47.0); LYMPHOCYTES # 2.1 10^3/ul (0.8-2.9); LYMPHOCYTES % 27.2 % (15.0-51.0); MEAN CORPUSCULAR HGB CONC 31.3 g/dl (32.0-37.0); MEAN CORPUSCULAR VOLUME 89.4 fl (82.0-101.0); MEAN PLATELET VOLUME 8.3 fl (7.4-10.4); MONOCYTE # 0.4 10^3/ul (0.3-0.9); MONOCYTES % 5.3 % (0.0-11.0); NEUTROPHILS % 65.7 % (39.0-77.0); PLATELET COUNT 488 10^3/UL (140-415); RED BLOOD COUNT 3.57 10^6/ul (4.20-5.40)
[2018-05-03 05:40] LABS: PHOSPHORUS 5.6 mg/dl (2.5-4.9)
[2018-05-03 05:41] LABS: MAGNESIUM 2.3 mg/dl (1.7-2.5)
[2018-05-03 05:46] LABS: ALANINE AMINOTRANSFERASE 80 IU/L (13-69); ALBUMIN/GLOBULIN RATIO 0.81; ALKALINE PHOSPHATASE 74 IU/L (42-121); ANION GAP 10 (8-16); ASPARTATE AMINO TRANSFERASE 19 IU/L (15-46); BILIRUBIN,INDIRECT 0.4 mg/dl (0-1.1); BILIRUBIN,TOTAL 0.4 mg/dl (0.2-1.3); BLOOD UREA NITROGEN 8 mg/dl (7-20); CALCIUM 8.8 mg/dl (8.4-10.2); CARBON DIOXIDE 29 mmol/L (21-31); CHLORIDE 102 mmol/L (97-110); GLUCOSE 105 mg/dl (70-220); POTASSIUM 4.3 mmol/L (3.5-5.1); SODIUM 137 mmol/L (135-144); TOTAL PROTEIN 6.7 g/dl (6.1-8.1)
[2018-05-03] MEDS: FAMOTIDINE 20 MG INJ IV ×2 (08:31→21:06)
[2018-05-03] MEDS: predniSONE 10 MG TAB PO (08:32)
[2018-05-03] MEDS: MUPIROCIN 2% 22 GM OINT TOP ×2 (09:00→21:07)
[2018-05-03] MEDS: HYDROmorphONE 0.5 MG/0.5 ML SYG IV (12:58)
[2018-05-03] MEDS: LIDOCAINE 5% 35 GM OINT TOP (21:07)
[2018-05-04] MEDS: HYDROmorphONE 1 MG/ML SYG IV ×7 (02:46→21:32)
[2018-05-04] MEDS: METHYLPREDNISOLONE 40 MG INJ IV (09:30)
[2018-05-04] MEDS: FAMOTIDINE 20 MG INJ IV ×2 (09:31→21:32)
[2018-05-04] MEDS: MUPIROCIN 2% 22 GM OINT TOP ×2 (09:31→21:32)
[2018-05-04 11:17] LABS: ADD MAN DIFF? NO
[2018-05-04 11:22] LABS: BASOPHILS % 0.3 % (0.0-2.0); EOSINOPHILS # 0.3 10^3/ul (0.0-0.5); EOSINOPHILS % 2.5 % (0.0-7.0); HEMOGLOBIN 9.9 g/dl (12.0-16.0); LYMPHOCYTES % 29.3 % (15.0-51.0); MEAN CORPUSCULAR HEMOGLOBIN 27.9 pg (29.0-33.0); MEAN CORPUSCULAR HGB CONC 30.9 g/dl (32.0-37.0); MEAN CORPUSCULAR VOLUME 90.1 fl (82.0-101.0); MEAN PLATELET VOLUME 8.1 fl (7.4-10.4); MONOCYTE # 0.5 10^3/ul (0.3-0.9); MONOCYTES % 5.1 % (0.0-11.0); NEUTROPHIL # 6.3 10^3/ul (1.6-7.5); PLATELET COUNT 521 10^3/UL (140-415); RED BLOOD COUNT 3.55 10^6/ul (4.20-5.40); RED CELL DISTRIBUTION WIDTH 15.2 % (11.5-14.5)
[2018-05-04 11:22] LABS: WHITE BLOOD COUNT 10.1 10^3/ul (4.8-10.8)
[2018-05-04 11:42] LABS: ALANINE AMINOTRANSFERASE 58 IU/L (13-69); ALBUMIN/GLOBULIN RATIO 0.85; ALKALINE PHOSPHATASE 65 IU/L (42-121); ANION GAP 11 (8-16); ASPARTATE AMINO TRANSFERASE 16 IU/L (15-46); BILIRUBIN,INDIRECT 0.5 mg/dl (0-1.1); BILIRUBIN,TOTAL 0.5 mg/dl (0.2-1.3); BLOOD UREA NITROGEN 9 mg/dl (7-20); CALCIUM 8.8 mg/dl (8.4-10.2); CARBON DIOXIDE 28 mmol/L (21-31); CHLORIDE 103 mmol/L (97-110); CREATININE 0.64 mg/dl (0.44-1.00); GLUCOSE 105 mg/dl (70-220); SODIUM 139 mmol/L (135-144); TOTAL PROTEIN 6.5 g/dl (6.1-8.1)
[2018-05-04 11:44] LABS: PHOSPHORUS 2.7 mg/dl (2.5-4.9)
[2018-05-04 11:51] LABS: POTASSIUM 2.8 mmol/L (3.5-5.1)
[2018-05-04] MEDS: POTASSIUM CHLORIDE (SR) 20 MEQ TAB PO ×2 (12:31→17:05)
[2018-05-04] MEDS: POTASSIUM CHLORIDE 100 ML IVPB (14:52)
[2018-05-04 20:27] LABS: POTASSIUM 4.3 mmol/L (3.5-5.1)
[2018-05-05] MEDS: HYDROmorphONE 1 MG/ML SYG IV ×4 (00:44→09:40)
[2018-05-05] MEDS: METHYLPREDNISOLONE 40 MG INJ IV (09:14)
[2018-05-05] MEDS: FAMOTIDINE 20 MG INJ IV ×2 (09:14→21:34)
[2018-05-05] MEDS: MUPIROCIN 2% 22 GM OINT TOP ×2 (09:37→21:35)
[2018-05-05 11:07] LABS: ADD MAN DIFF? NO
[2018-05-05 11:12] LABS: BASOPHILS % 0.3 % (0.0-2.0); EOSINOPHILS # 0.3 10^3/ul (0.0-0.5); EOSINOPHILS % 2.7 % (0.0-7.0); HEMATOCRIT 30.2 % (37.0-47.0); HEMOGLOBIN 9.4 g/dl (12.0-16.0); LYMPHOCYTES % 17.3 % (15.0-51.0); MEAN CORPUSCULAR HEMOGLOBIN 28.2 pg (29.0-33.0); MEAN CORPUSCULAR HGB CONC 31.1 g/dl (32.0-37.0); MEAN CORPUSCULAR VOLUME 90.7 fl (82.0-101.0); MEAN PLATELET VOLUME 8.1 fl (7.4-10.4); MONOCYTE # 0.6 10^3/ul (0.3-0.9); MONOCYTES % 4.8 % (0.0-11.0); NEUTROPHIL # 8.6 10^3/ul (1.6-7.5); NEUTROPHILS % 74.1 % (39.0-77.0); PLATELET COUNT 472 10^3/UL (140-415); RED BLOOD COUNT 3.33 10^6/ul (4.20-5.40); RED CELL DISTRIBUTION WIDTH 15.7 % (11.5-14.5)
[2018-05-05 11:12] LABS: WHITE BLOOD COUNT 11.6 10^3/ul (4.8-10.8)
[2018-05-05 11:44] LABS: ALANINE AMINOTRANSFERASE 46 IU/L (13-69); ALBUMIN 2.7 g/dl (3.3-4.9); ALBUMIN/GLOBULIN RATIO 0.81; ALKALINE PHOSPHATASE 54 IU/L (42-121); ANION GAP 11 (8-16); ASPARTATE AMINO TRANSFERASE 21 IU/L (15-46); BILIRUBIN,INDIRECT 0.3 mg/dl (0-1.1); BILIRUBIN,TOTAL 0.3 mg/dl (0.2-1.3); BLOOD UREA NITROGEN 6 mg/dl (7-20); CALCIUM 8.3 mg/dl (8.4-10.2); CARBON DIOXIDE 28 mmol/L (21-31); CHLORIDE 104 mmol/L (97-110); CREATININE 0.62 mg/dl (0.44-1.00); GLUCOSE 120 mg/dl (70-220); POTASSIUM 4.1 mmol/L (3.5-5.1); SODIUM 139 mmol/L (135-144)
[2018-05-05 12:03] LABS: PHOSPHORUS 3.1 mg/dl (2.5-4.9)
[2018-05-05] MEDS: HYDROmorphONE 0.5 MG/0.5 ML SYG IV ×4 (12:58→21:34)
[2018-05-06] MEDS: HYDROmorphONE 0.5 MG/0.5 ML SYG IV ×4 (00:59→11:05)
[2018-05-06] MEDS: FAMOTIDINE 20 MG INJ IV ×2 (08:06→21:05)
[2018-05-06] MEDS: MUPIROCIN 2% 22 GM OINT TOP ×2 (08:07→22:09)
[2018-05-06] MEDS: predniSONE 10 MG TAB PO (10:10)
[2018-05-06 11:54] LABS: ADD MAN DIFF? NO
[2018-05-06 12:07] LABS: BASOPHILS % 0.3 % (0.0-2.0); EOSINOPHILS # 0.4 10^3/ul (0.0-0.5); EOSINOPHILS % 2.8 % (0.0-7.0); HEMATOCRIT 30.3 % (37.0-47.0); HEMOGLOBIN 9.6 g/dl (12.0-16.0); LYMPHOCYTES # 4.6 10^3/ul (0.8-2.9); LYMPHOCYTES % 35.3 % (15.0-51.0); MEAN CORPUSCULAR HEMOGLOBIN 28.2 pg (29.0-33.0); MEAN CORPUSCULAR HGB CONC 31.7 g/dl (32.0-37.0); MEAN CORPUSCULAR VOLUME 89.1 fl (82.0-101.0); MEAN PLATELET VOLUME 8.3 fl (7.4-10.4); MONOCYTE # 1.2 10^3/ul (0.3-0.9); MONOCYTES % 9.2 % (0.0-11.0); NEUTROPHIL # 6.7 10^3/ul (1.6-7.5); NEUTROPHILS % 51.8 % (39.0-77.0); PLATELET COUNT 522 10^3/UL (140-415); RED CELL DISTRIBUTION WIDTH 15.9 % (11.5-14.5)
[2018-05-06 12:16] LABS: MAGNESIUM 1.9 mg/dl (1.7-2.5)
[2018-05-06 12:16] LABS: PHOSPHORUS 3.9 mg/dl (2.5-4.9)
[2018-05-06 12:17] LABS: ALANINE AMINOTRANSFERASE 42 IU/L (13-69); ALBUMIN 2.8 g/dl (3.3-4.9); ALBUMIN/GLOBULIN RATIO 0.84; ALKALINE PHOSPHATASE 57 IU/L (42-121); ANION GAP 9 (8-16); ASPARTATE AMINO TRANSFERASE 14 IU/L (15-46); BILIRUBIN,INDIRECT 0.2 mg/dl (0-1.1); BILIRUBIN,TOTAL 0.2 mg/dl (0.2-1.3); BLOOD UREA NITROGEN 8 mg/dl (7-20); CALCIUM 8.6 mg/dl (8.4-10.2); CARBON DIOXIDE 29 mmol/L (21-31); CHLORIDE 104 mmol/L (97-110); CREATININE 0.61 mg/dl (0.44-1.00); GLUCOSE 83 mg/dl (70-220); SODIUM 138 mmol/L (135-144); TOTAL PROTEIN 6.1 g/dl (6.1-8.1)
[2018-05-06] MEDS: OXYCODONE/ACETAMINOPHEN (5/325) TAB PO (13:26)
[2018-05-06] MEDS: OXYCODONE/ACETAMINOPHEN (10/325) TAB PO ×3 (14:41→22:46)
[2018-05-06] MEDS: DOCUSATE SODIUM 100 MG CAP PO (16:46)
[2018-05-07] MEDS: OXYCODONE/ACETAMINOPHEN (10/325) TAB PO ×3 (05:22→14:18)
[2018-05-07 08:39] LABS: ADD MAN DIFF? NO
[2018-05-07 08:50] LABS: WHITE BLOOD COUNT 17.4 10^3/ul (4.8-10.8)
[2018-05-07 08:50] LABS: BASOPHIL # 0.1 10^3/ul (0.0-0.1); BASOPHILS % 0.3 % (0.0-2.0); EOSINOPHILS # 0.2 10^3/ul (0.0-0.5); EOSINOPHILS % 1.3 % (0.0-7.0); HEMATOCRIT 33.4 % (37.0-47.0); HEMOGLOBIN 10.5 g/dl (12.0-16.0); LYMPHOCYTES # 4.9 10^3/ul (0.8-2.9); LYMPHOCYTES % 28.2 % (15.0-51.0); MEAN CORPUSCULAR HEMOGLOBIN 28.1 pg (29.0-33.0); MEAN CORPUSCULAR HGB CONC 31.4 g/dl (32.0-37.0); MEAN CORPUSCULAR VOLUME 89.3 fl (82.0-101.0); MEAN PLATELET VOLUME 8.2 fl (7.4-10.4); MONOCYTE # 1.4 10^3/ul (0.3-0.9); MONOCYTES % 7.8 % (0.0-11.0); NEUTROPHIL # 10.7 10^3/ul (1.6-7.5); NEUTROPHILS % 61.8 % (39.0-77.0); PLATELET COUNT 620 10^3/UL (140-415); RED BLOOD COUNT 3.74 10^6/ul (4.20-5.40); RED CELL DISTRIBUTION WIDTH 15.9 % (11.5-14.5)
[2018-05-07 09:01] LABS: ALANINE AMINOTRANSFERASE 36 IU/L (13-69); ALBUMIN 3.3 g/dl (3.3-4.9); ALBUMIN/GLOBULIN RATIO 0.84; ALKALINE PHOSPHATASE 67 IU/L (42-121); ANION GAP 14 (8-16); ASPARTATE AMINO TRANSFERASE 15 IU/L (15-46); BILIRUBIN,INDIRECT 0.1 mg/dl (0-1.1); BILIRUBIN,TOTAL 0.1 mg/dl (0.2-1.3); BLOOD UREA NITROGEN 10 mg/dl (7-20); CALCIUM 9.1 mg/dl (8.4-10.2); CARBON DIOXIDE 25 mmol/L (21-31); CHLORIDE 106 mmol/L (97-110); CREATININE 0.62 mg/dl (0.44-1.00); GLUCOSE 91 mg/dl (70-220); POTASSIUM 3.9 mmol/L (3.5-5.1); SODIUM 141 mmol/L (135-144); TOTAL PROTEIN 7.2 g/dl (6.1-8.1)
[2018-05-07 09:09] LABS: PHOSPHORUS 4.7 mg/dl (2.5-4.9)
[2018-05-07 09:09] LABS: MAGNESIUM 2.2 mg/dl (1.7-2.5)
[2018-05-07] MEDS: predniSONE 20 MG TAB PO (09:40)
[2018-05-07] MEDS: FAMOTIDINE 20 MG INJ IV (09:40)
== END 2018-05-07 16:30 | disposition home or self-care (01) | DRG 348 ==
LOC: E/R 02:53 → MS1 05:56
PROC: 06BY0ZC Excision of Hemorrhoidal Plexus, Open Approach (ICD-10-PCS; principal; 2018-04-20 16:30)
PROC: 0DBK8ZX Excision of Ascending Colon, Via Natural or Artificial Opening Endoscopic, Diagnostic (ICD-10-PCS; 2018-04-20 18:50)
PROC: 0DBL8ZX Excision of Transverse Colon, Via Natural or Artificial Opening Endoscopic, Diagnostic (ICD-10-PCS; 2018-04-20 18:50)
PROC: 0DBP8ZX Excision of Rectum, Via Natural or Artificial Opening Endoscopic, Diagnostic (ICD-10-PCS; 2018-04-20 18:50)
PROC: 0DBH8ZX Excision of Cecum, Via Natural or Artificial Opening Endoscopic, Diagnostic (ICD-10-PCS; 2018-04-20 18:50)
DX: K51.90 Ulcerative colitis, unspecified, without complications (principal); D62 Acute posthemorrhagic anemia; K64.3 Fourth degree hemorrhoids; D72.829 Elevated white blood cell count, unspecified; Z22.322 Carrier or suspected carrier of Methicillin resistant Staphylococcus aureus
CPT/HCPCS: 36415; 74176; 76705; 80048; 80053; 80061; 81001; 81025; 82150; 83036; 83690; 83735; 84100; 84132; 84703; 85014; 85018; 85025; 85610; 85651; 85730; 86021; 86140; 86674; 87045; 87075; 87081; 87086; 87177; 88302; 88305; 96374; 96375; 96376; 99285-25